=== PATIENT | female | born 2000 ===

== ENCOUNTER 2019-03-28 18:04 | Emergency (ER) | payer SELFPAY ==
[~2019-03-28] VITALS: Ht 162 cm; Wt 59.0 kg
--- NOTE | 2019-03-28 18:49 | NUR ---
LAB HERE TO DRAW BLOOD
[2019-03-28] MEDS ORDERED: ACHD5005 PO (18:52)
[2019-03-28] MEDS ORDERED: CEPH500T PO (18:52)
--- NOTE | 2019-03-28 18:53 | ED Integumentary General ---
General Chief Complaint: Skin/Wound Problems Stated Complaint: LEFT LEG BRUISING Nursing Triage Note: PT CO OF POSSIBLE BITE AREA ON INNER L THIGH WEDNESDAY HAS GOTTEN WORSE. PAIN RADIATING INTO LOWER ABD ON L SIDE 09/24 Source: patient Exam Limitations: no limitations History of Present Illness Date Seen by Provider: Mar 28, 2019 Time Seen by Provider: 18:49 Initial Comments To ER with an area of bruising to the medial proximal left thigh. This was first noticed 2 days ago, she felt a sharp pain upon sitting down. She went to the bathroom to check this out and noticed a small red bump. Since then the small red bump has turned into a flat area ecchymotic in appearance, nodular beneath it and with surrounding erythema. She had some body aches and chills yesterday. She did not see a spider bite her but suspects a spider bite. Timing/Duration: constant, getting worse Severity: moderate Location: none Associated Symptoms: denies symptoms Allergies and Home Medications Allergies Coded Allergies: No Known Drug Allergies (Unverified , 03/28/19) Home Medications Cephalexin 500 Mg Tablet, 500 MG PO TID Prescribed by: CATARINA ENGEL on 03/28/191851 Hydrocodone Bit/Acetaminophen 1 Tab Tab, 1-2 EACH PO Q6H PRN for PAIN-MODERATE Prescribed by: CATARINA ENGEL on 03/28/191851 Patient Home Medication List Home Medication List Reviewed: Yes Review of Systems Review of Systems Constitutional: see HPI, chills EENTM: see HPI Respiratory: no symptoms reported Cardiovascular: no symptoms reported Genitourinary: no symptoms reported LMP: Feb 26, 2019 Skin: see HPI Psychiatric/Neurological: No Symptoms Reported Past Jmqpdwt-Ygafpw-Nbyzdo Hx Patient Social History Alcohol Use: Denies Use Recreational Drug Use: No Smoking Status: Never a Smoker Recent Foreign Travel: No Contact w/Someone Who Travel: No Recent Infectious Disease Expo: No Recent Hopitalizations: No Ebola Symptoms: Weakness Physical Abuse: No Sexual Abuse: No Immunizations Up To Date Tetanus Booster (TDap): More than 5yrs Past Medical History Surgeries: No Respiratory: No Cardiac: No Neurological: No Genitourinary: No Gastrointestinal: No Musculoskeletal: No Endocrine: No HEENT: No Cancer: No Psychosocial: No Integumentary: No Physical Exam Vital Signs Vital Signs - First Documented 03/28/19 18:26 Temp 36.6 Pulse 92 Resp 18 Pulse Ox 100 Capillary Refill : General Appearance: WD/WN, no apparent distress HEENT: PERRL/EOMI, normal ENT inspection Respiratory: no respiratory distress, no accessory muscle use Neurologic/Psychiatric: alert, normal mood/affect, oriented x 3 Skin: normal color, warm/dry Skin Problem Location: other (proximal medial left thigh has a 2 x 1 cm area of ecchymosis with some areas of pale color, around this is a 3 cm area of erythema circular in shape and indurated. This is consistent with brown recluse bite.) Progress/Results/Core Measures Results/Orders Lab Results Laboratory Tests Test 03/28/19 18:52 Range/Units White Blood Count 7.2 4.3-11.0 10^3/uL Red Blood Count 4.54 4.35-5.85 10^6/uL Hemoglobin 13.5 11.5-16.0 G/DL Hematocrit 41 35-52 % Mean Corpuscular Volume 90 80-99 FL Mean Corpuscular Hemoglobin 30 25-34 PG Mean Corpuscular Hemoglobin Concent 33 32-36 G/DL Red Cell Distribution Width 13.0 10.0-14.5 % Platelet Count 169 130-400 10^3/uL Mean Platelet Volume 10.8 H 7.4-10.4 FL Neutrophils (%) (Auto) 69 42-75 % Lymphocytes (%) (Auto) 21 12-44 % Monocytes (%) (Auto) 8 0-12 % Eosinophils (%) (Auto) 2 0-10 % Basophils (%) (Auto) 0 0-10 % Neutrophils # (Auto) 5.0 1.8-7.8 X 10^3 Lymphocytes # (Auto) 1.5 1.0-4.0 X 10^3 Monocytes # (Auto) 0.6 0.0-1.0 X 10^3 Eosinophils # (Auto) 0.2 0.0-0.3 10^3/uL Basophils # (Auto) 0.0 0.0-0.1 10^3/uL Prothrombin Time 14.5 12.2-14.7 SEC INR Comment 1.1 0.8-1.4 Sodium Level 137 135-145 MMOL/L Potassium Level 3.6 3.6-5.0 MMOL/L Chloride Level 105 98-107 MMOL/L Carbon Dioxide Level 22 21-32 MMOL/L Anion Gap 10 5-14 MMOL/L Blood Urea Nitrogen 14 7-18 MG/DL Creatinine 0.70 0.60-1.30 MG/DL Estimat Glomerular Filtration Rate > 60 BUN/Creatinine Ratio 20 Glucose Level 94 70-105 MG/DL Calcium Level 9.2 8.5-10.1 MG/DL Corrected Calcium 8.9 8.5-10.1 MG/DL Total Bilirubin 0.3 0.1-1.0 MG/DL Aspartate Amino Transf (AST/SGOT) 41 H 5-34 U/L Alanine Aminotransferase (ALT/SGPT) 49 0-55 U/L Alkaline Phosphatase 84 40-136 U/L Total Protein 7.5 6.4-8.2 GM/DL Albumin 4.4 3.2-4.5 GM/DL My Orders Orders - CATARINA ENGEL APRN Cbc With Automated Diff (03/28/19 18:35) Comprehensive Metabolic Panel (03/28/19 18:35) Protime With Inr (03/28/19 18:35) Vital Signs/I&O 03/28/19 18:26 Temp 36.6 Pulse 92 Resp 18 B/P (MAP) Pulse Ox 100 Departure Impression Primary Impression: Brown recluse spider bite Qualified Codes: T63.334A - Toxic effect of venom of brown recluse spider, undetermined, initial encounter Disposition: 01 HOME, SELF-CARE Condition: Stable Departure-Patient Inst. Decision time for Depature: 18:51 Referrals: NO,LOCAL PHYSICIAN (PCP) Primary Care Physician Patient Instructions: Spider Bites Add. Discharge Instructions: 1. Cool compresses to the area. Pain medication as needed for severe pain only. Antibiotics as directed. Follow-up with your doctor this week for recheck. All discharge instructions reviewed with patient and/or family. Voiced understanding. Scripts Hydrocodone Bit/Acetaminophen (Hydrocodone/Acetaminophen 5/325mg Tablet) 1 Tab Tab 1-2 EACH PO Q6H PRN for PAIN-MODERATE MDD 10 for 3 Days, #5 TAB 0 Refills Prov: CATARINA ENGEL APRN 03/28/19 Cephalexin (Cephalexin) 500 Mg Tablet 500 MG PO TID, #15 TAB 0 Refills Prov: CATARINA ENGEL APRN 03/28/19 Work/School Note: Work Release Form Date Seen in the Emergency Department: Mar 28, 2019 Return to Work: Mar 30, 2019 CATARINA ENGEL APRN Mar 28, 2019 18:53
--- NOTE | 2019-03-28 18:54 | NUR ---
REPORT TO AMADEO COLÓN
[2019-03-28 18:59] LABS: BASOPHILS % (AUTO) 0 % (0-10); EOSINOPHILS # (AUTO) 0.2 10^3/uL (0.0-0.3); EOSINOPHILS % (AUTO) 2 % (0-10); HEMATOCRIT 41 % (35-52); HEMOGLOBIN 13.5 G/DL (11.5-16.0); LYMPHOCYTES # (AUTO) 1.5 X 10^3 (1.0-4.0); LYMPHOCYTES % (AUTO) 21 % (12-44); MEAN CORPUSCULAR HEMOGLOBIN 30 PG (25-34); MEAN CORPUSCULAR HGB CONC 33 G/DL (32-36); MEAN CORPUSCULAR VOLUME 90 FL (80-99); MEAN PLATELET VOLUME 10.8 FL (7.4-10.4); MONOCYTES # (AUTO) 0.6 X 10^3 (0.0-1.0); MONOCYTES % (AUTO) 8 % (0-12); NEUTROPHILS % (AUTO) 69 % (42-75); PLATELET COUNT 169 10^3/uL (130-400); WHITE BLOOD COUNT 7.2 10^3/uL (4.3-11.0)
[2019-03-28 19:09] LABS: INR 1.1 (0.8-1.4); PROTHROMBIN TIME PATIENT 14.5 SEC (12.2-14.7)
[2019-03-28 19:19] LABS: ALANINE AMINOTRANSFERASE 49 U/L (0-55); ALBUMIN 4.4 GM/DL (3.2-4.5); ALKALINE PHOSPHATASE 84 U/L (40-136); BILIRUBIN,TOTAL 0.3 MG/DL (0.1-1.0); BUN/CREATININE RATIO 20; CALCIUM 9.2 MG/DL (8.5-10.1); CARBON DIOXIDE 22 MMOL/L (21-32); CHLORIDE 105 MMOL/L (98-107); GFR ESTIMATED > 60; GLUCOSE 94 MG/DL (70-105); POTASSIUM 3.6 MMOL/L (3.6-5.0); SODIUM 137 MMOL/L (135-145); TOTAL PROTEIN 7.5 GM/DL (6.4-8.2)
[2019-03-28] MEDS ORDERED: HYDROcodone/APAP 5 MG/325 MG (LORTAB) TAB PO ONE (19:45)
[2019-03-28] MEDS ORDERED: CEPHALEXIN 250 MG (KEFLEX) CAP PO ONE (19:45)
--- OUTSIDE RECORDS SUMMARY | 2019-04-07 16:00 | XMS REPORT | Continuity of Care Document ---
Author Organization Unknown Address Unknown Phone Unavailable Allergies Active Description Code Type Severity Reaction Onset Reported/Identified Relationship to Patient Clinical Status Yes No Known Drug Allergies [id number] Drug Allergy Unknown N/A 03/28/2019 Medications There is no data. Problems Date Dx Coded Attending Type Code Diagnosis Diagnosed By 03/28/2019 CATARINA ENGEL APRN Ot T63.331A TOXIC EFFECT OF VENOM OF BROWN RECLUSE S Procedures There is no data. Results Test Result Range Complete blood count (CBC) with automate d white blood cell (WBC) differential - 03/28/19 18:52 Blood leukocytes automated count (number/volume) 7.2 10*3/uL 4.3-11.0 Blood erythrocytes automated count (number/volume) 4.54 10*6/uL 4.35-5.85 Venous blood hemoglobin measurement (mass/volume) 13.5 g/dL 11.5-16.0 Blood hematocrit (volume fraction) 41 % 35-52 Automated erythrocyte mean corpuscular volume 90 [ foz_us] 80-99 Automated erythrocyte mean corpuscular h emoglobin (mass per erythrocyte) 30 pg 25-34 Automated erythrocyte mean corpuscular h emoglobin concentration measurement (mass/volume) 33 g/dL 32-36 Automated erythrocyte distribution width ratio 13. 0 % 10.0- 14.5 Automated blood platelet count (count/volume) 169 10*3/uL 130-400 Automated blood platelet mean volume measurement 10.8 [foz_us] 7.4-10.4 Automated blood neutrophils/100 leukocytes 69 % 42-75 Automated blood lymphocytes/100 leukocytes 21 % 12-44 Blood monocytes/100 leukocytes 8 % 0-12 Automated blood eosinophils/100 leukocytes 2 % 0-10 Automated blood basophils/100 leukocytes 0 % 0-10 Blood neutrophils automated count (number/volume) 5.0 10*3 1.8-7.8 Blood lymphocytes automated count (number/volume) 1.5 10*3 1.0-4.0 Blood monocytes automated count (number/volume) 0. 6 10*3 0.0-1.0 Automated eosinophil count 0.2 10*3/uL 0 .0-0.3 Automated blood basophil count (count/volume) 0.0 10*3/uL 0.0-0.1 PT panel in platelet poor plasma by coag ulation assay - 03/28/19 18:52 Prothrombin time (PT) in platelet poor plasma by coagu lation assay 14.5 s 12.2-14.7 INR in platelet poor plasma or blood by coagulation as say 1.1 0.8-1.4 Comprehensive metabolic panel - 03/28/19 18:52 Serum or plasma sodium measurement (moles/volume) 137 mmol/L 135-145 Serum or plasma potassium measurement (moles/volume) 3.6 mmol/L 3.6-5.0 Serum or plasma chloride measurement (moles/volume) 105 mmol/L 98-107 Carbon dioxide 22 mmol/L 21-32 Serum or plasma anion gap determination (moles/volume) 10 mmol/L 5-14 Serum or plasma urea nitrogen measurement (mass/volume ) 14 mg/dL 7-18 Serum or plasma creatinine measurement (mass/volume) 0.70 mg/dL 0.60-1.30 Serum or plasma urea nitrogen/creatinine mass ratio 20 NRG Serum or plasma creatinine measurement w ith calculation of estimated glomerular filtration rate > NRG Serum or plasma glucose measurement (mass/volume) 94 mg/dL 70-105 Serum or plasma calcium measurement (mass/volume) 9.2 mg/dL 8.5-10.1 Serum or plasma total bilirubin measurement (mass/volu me) 0.3 mg/dL 0.1-1.0 Serum or plasma alkaline phosphatase liz surement (enzymatic activity/volume) 84 U/L 40-136 Serum or plasma aspartate aminotransfera se measurement (enzymatic activity/volume) 41 U/L 5-34 Serum or plasma alanine aminotransferase measurement (enzymatic activity/volume) 49 U/L 0-55 Serum or plasma protein measurement (mass/volume) 7.5 g/dL 6.4-8.2 Serum or plasma albumin measurement (mass/volume) 4.4 g/dL 3.2-4.5 CALCIUM CORRECTED 8.9 mg/dL 8.5-10.1 Complete blood count (CBC) with automate d white blood cell (WBC) differential - 04/06/19 15:18 Blood leukocytes automated count (number/volume) 8.6 10*3/uL 4.3-11.0 Blood erythrocytes automated count (number/volume) 4.32 10*6/uL 4.35-5.85 Venous blood hemoglobin measurement (mass/volume) 12.9 g/dL 11.5-16.0 Blood hematocrit (volume fraction) 39 % 35-52 Automated erythrocyte mean corpuscular volume 91 [ foz_us] 80-99 Automated erythrocyte mean corpuscular h emoglobin (mass per erythrocyte) 30 pg 25-34 Automated erythrocyte mean corpuscular h emoglobin concentration measurement (mass/volume) 33 g/dL 32-36 Automated erythrocyte distribution width ratio 12. 6 % 10.0- 14.5 Automated blood platelet count (count/volume) 248 10*3/uL 130-400 Automated blood platelet mean volume measurement 9.7 [foz_us] 7.4-10.4 Automated blood neutrophils/100 leukocytes 60 % 42-75 Automated blood lymphocytes/100 leukocytes 29 % 12-44 Blood monocytes/100 leukocytes 9 % 0-12 Automated blood eosinophils/100 leukocytes 1 % 0-10 Automated blood basophils/100 leukocytes 0 % 0-10 Blood neutrophils automated count (number/volume) 5.2 10*3 1.8-7.8 Blood lymphocytes automated count (number/volume) 2.5 10*3 1.0-4.0 Blood monocytes automated count (number/volume) 0. 8 10*3 0.0-1.0 Automated eosinophil count 0.1 10*3/uL 0 .0-0.3 Automated blood basophil count (count/volume) 0.0 10*3/uL 0.0-0.1 Whole blood basic metabolic panel - 03/19 15:18 Serum or plasma sodium measurement (moles/volume) 136 mmol/L 135-145 Serum or plasma potassium measurement (moles/volume) 3.9 mmol/L 3.6-5.0 Serum or plasma chloride measurement (moles/volume) 105 mmol/L 98-107 Carbon dioxide 23 mmol/L 21-32 Serum or plasma anion gap determination (moles/volume) 8 mmol/L 5-14 Serum or plasma urea nitrogen measurement (mass/volume ) 7 mg/dL 7-18 Serum or plasma creatinine measurement (mass/volume) 0.62 mg/dL 0.60-1.30 Serum or plasma urea nitrogen/creatinine mass ratio 11 NRG Serum or plasma creatinine measurement w ith calculation of estimated glomerular filtration rate > NRG Serum or plasma glucose measurement (mass/volume) 76 mg/dL 70-105 Serum or plasma calcium measurement (mass/volume) 9.0 mg/dL 8.5-10.1 Encounters ACCT No. Visit Date/Time Discharge Status Pt. Type Provider Facility Loc./Unit Complaint [id number] 04/06/2019 14:15:00 020 15:57:00 DIS Emergency CATARINA ENGEL APRN [facility] [address] ER SPIDER BITE;N/V [id number] 03/28/2019 18:08:00 020 19:39:00 DIS Emergency CATARINA ENGEL APRN [facility] [address] ER LEFT LEG BRUISING
== END 2019-03-28 19:39 | disposition home or self-care (01) ==
LOC: ER 18:08
DX: T63.331A Toxic effect of venom of brown recluse spider, accidental (unintentional), initial encounter (principal)
CPT/HCPCS: 36415; 80053; 85025; 85610; 99283

== ENCOUNTER 2019-04-06 14:14 | Emergency (ER) | payer SELFPAY ==
[~2019-04-06] VITALS: Ht 167 cm; Wt 60.4 kg
[~2019-04-06 14:14] MED LIST: ACHD5005 PO; CEPH500T PO
--- NOTE | 2019-04-06 14:31 | NUR ---
NO CHANGE FROM TRIAGE. AMB TO ROOM SMILING DID THROW UP AFTER EATING SPINACH TODAY ANTIBIOTIC WAS CHANGE FROM HER HER FIRST VISIT UNSURE NAME OF ANTIBIOTIC CHANGE IT TO.
--- NOTE | 2019-04-06 14:59 | ED General ---
General Chief Complaint: Abdominal/GI Problems Stated Complaint: SPIDER BITE;N/V Nursing Triage Note: ARRIVED VIA AMB TO TRIAGE WITH COMPLAINTS OF N/V AND NEAR SYNCOPE STARTING TODAY. STATES SHE WAS HERE FOR A SPIDER BITE LAST WEEK AND STILL ON ABX. Source of Information: Patient Exam Limitations: No Limitations History of Present Illness Date Seen by Provider: Apr 06, 2019 Time Seen by Provider: 14:54 Initial Comments To ER with nausea and vomiting. She was seen here recently for a spider bite proximal medial left thigh. She was given Keflex, hydrocodone. The appearance of the bite is improving but she developed some nausea. She developed a body wide rash after starting the antibiotic. She stopped it, went to [facility], was given Bactroban ointment, naproxen, more hydrocodone, and a different antibiotic. That was last , Timing/Duration: 1-2 Days Severity: Moderate Associated Systoms: Nausea/Vomiting Allergies and Home Medications Allergies Coded Allergies: No Known Drug Allergies (Unverified , 03/28/19) Home Medications Cephalexin 500 Mg Tablet, 500 MG PO TID Prescribed by: CATARINA ENGEL on 03/28/191851 Hydrocodone Bit/Acetaminophen 1 Tab Tab, 1-2 EACH PO Q6H PRN for PAIN-MODERATE Prescribed by: CATARINA ENGEL on 03/28/191851 Patient Home Medication List Home Medication List Reviewed: Yes Review of Systems Review of Systems Constitutional: see HPI EENTM: see HPI Respiratory: no symptoms reported Cardiovascular: no symptoms reported Genitourinary: no symptoms reported Musculoskeletal: no symptoms reported Skin: no symptoms reported Psychiatric/Neurological: No Symptoms Reported Past Dsjqrxt-Bcaigm-Cjnnua Hx Patient Social History Recent Foreign Travel: No Contact w/Someone Who Travel: No Recent Infectious Disease Expo: No Recent Hopitalizations: No Immunizations Up To Date Tetanus Booster (TDap): More than 5yrs Past Medical History Surgeries: No Respiratory: No Cardiac: No Neurological: No Genitourinary: No Gastrointestinal: No Musculoskeletal: No Endocrine: No HEENT: No Cancer: No Psychosocial: No Integumentary: No Physical Exam Vital Signs Vital Signs - First Documented 04/06/19 14:18 Temp 36.5 Pulse 65 Resp 16 B/P (MAP) 160/99 Pulse Ox 100 Capillary Refill : Height, Weight, BMI Height: '" Weight: lbs. oz. kg; 21.00 BMI Method: General Appearance: No Apparent Distress, WD/WN Eyes: Bilateral Eye Normal Inspection, Bilateral Eye PERRL HEENT: PERRL/EOMI, TMs Normal Neck: Full Range of Motion, Normal Inspection Respiratory: No Accessory Muscle Use, No Respiratory Distress Cardiovascular: Regular Rate, Rhythm, Normal Peripheral Pulses Gastrointestinal: Non Tender, Soft Extremity: Normal Capillary Refill, Normal Inspection Neurologic/Psychiatric: Alert, Oriented x3 Skin: Other (to the medial aspect of the left thigh is a 2 x 3 cm area well demarcated of erythema with a 0.5 x 1 cm area of central necrosis consistent with spider bite. Does not appear infected, the oral antibiotics can stop.) Progress/Results/Core Measures Suspected Sepsis SIRS Temperature: Pulse: Respiratory Rate: Laboratory Tests 04/06/19 15:18: White Blood Count 8.6 Blood Pressure / Mean: Laboratory Tests 04/06/19 15:18: Creatinine 0.62, Platelet Count 248 Results/Orders Lab Results Laboratory Tests Test 04/06/19 15:18 Range/Units White Blood Count 8.6 4.3-11.0 10^3/uL Red Blood Count 4.32 L 4.35-5.85 10^6/uL Hemoglobin 12.9 11.5-16.0 G/DL Hematocrit 39 35-52 % Mean Corpuscular Volume 91 80-99 FL Mean Corpuscular Hemoglobin 30 25-34 PG Mean Corpuscular Hemoglobin Concent 33 32-36 G/DL Red Cell Distribution Width 12.6 10.0-14.5 % Platelet Count 248 130-400 10^3/uL Mean Platelet Volume 9.7 7.4-10.4 FL Neutrophils (%) (Auto) 60 42-75 % Lymphocytes (%) (Auto) 29 12-44 % Monocytes (%) (Auto) 9 0-12 % Eosinophils (%) (Auto) 1 0-10 % Basophils (%) (Auto) 0 0-10 % Neutrophils # (Auto) 5.2 1.8-7.8 X 10^3 Lymphocytes # (Auto) 2.5 1.0-4.0 X 10^3 Monocytes # (Auto) 0.8 0.0-1.0 X 10^3 Eosinophils # (Auto) 0.1 0.0-0.3 10^3/uL Basophils # (Auto) 0.0 0.0-0.1 10^3/uL Sodium Level 136 135-145 MMOL/L Potassium Level 3.9 3.6-5.0 MMOL/L Chloride Level 105 98-107 MMOL/L Carbon Dioxide Level 23 21-32 MMOL/L Anion Gap 8 5-14 MMOL/L Blood Urea Nitrogen 7 7-18 MG/DL Creatinine 0.62 0.60-1.30 MG/DL Estimat Glomerular Filtration Rate > 60 BUN/Creatinine Ratio 11 Glucose Level 76 70-105 MG/DL Calcium Level 9.0 8.5-10.1 MG/DL My Orders Orders - CATARNIA ENGEL APRN Ondansetron Oral Dissolve Tab (Zofran (04/06/19 15:00) Cbc With Automated Diff (04/06/19 14:48) Basic Metabolic Panel (04/06/19 14:48) Medications Given in ED Current Medications Medications Dose Ordered Sig/John Route Start Time Stop Time Status Last Admin Dose Admin Ondansetron HCl 8 mg ONCE ONCE PO 04/06/19 15:00 04/06/19 15:01 DC 04/06/19 15:01 8 MG Vital Signs/I&O 04/06/19 14:18 Temp 36.5 Pulse 65 Resp 16 B/P (MAP) 160/99 Pulse Ox 100 Capillary Refill : Departure Impression Primary Impression: Spider bite Disposition: HOME, SELF-CARE Condition: Stable Departure-Patient Inst. Decision time for Depature: 15:10 Referrals: NO,LOCAL PHYSICIAN (PCP/Family) Primary Care Physician Patient Instructions: Spider Bites Add. Discharge Instructions: Stop the oral antibiotic All discharge instructions reviewed with patient and/or family. Voiced understanding. Scripts Ondansetron (Ondansetron Odt) 8 Mg Tab.rapdis 8 MG PO Q6H PRN for NAUSEA/VOMITING, #10 TAB Prov: CATARINA ENGEL APRN 04/06/19 CATARINA ENGEL APRN Apr 06, 2019 14:59
[2019-04-06] MEDS ORDERED: ONDANSETRON 4 MG (ZOFRAN) ORAL DISSOLVE TAB PO ONE (15:00)
[2019-04-06 15:26] LABS: BASOPHILS % (AUTO) 0 % (0-10); EOSINOPHILS # (AUTO) 0.1 10^3/uL (0.0-0.3); EOSINOPHILS % (AUTO) 1 % (0-10); HEMATOCRIT 39 % (35-52); HEMOGLOBIN 12.9 G/DL (11.5-16.0); LYMPHOCYTES # (AUTO) 2.5 X 10^3 (1.0-4.0); LYMPHOCYTES % (AUTO) 29 % (12-44); MEAN CORPUSCULAR HEMOGLOBIN 30 PG (25-34); MEAN CORPUSCULAR HGB CONC 33 G/DL (32-36); MEAN CORPUSCULAR VOLUME 91 FL (80-99); MEAN PLATELET VOLUME 9.7 FL (7.4-10.4); MONOCYTES # (AUTO) 0.8 X 10^3 (0.0-1.0); MONOCYTES % (AUTO) 9 % (0-12); NEUTROPHILS # (AUTO) 5.2 X 10^3 (1.8-7.8); NEUTROPHILS % (AUTO) 60 % (42-75); PLATELET COUNT 248 10^3/uL (130-400); RED CELL DISTRIBUTION WIDTH 12.6 % (10.0-14.5); WHITE BLOOD COUNT 8.6 10^3/uL (4.3-11.0)
[2019-04-06 15:42] LABS: BUN/CREATININE RATIO 11; CARBON DIOXIDE 23 MMOL/L (21-32); CHLORIDE 105 MMOL/L (98-107); CREATININE SERUM 0.62 MG/DL (0.60-1.30); GFR ESTIMATED > 60; GLUCOSE 76 MG/DL (70-105); POTASSIUM 3.9 MMOL/L (3.6-5.0); SODIUM 136 MMOL/L (135-145)
[2019-04-06] MEDS ORDERED: ONDA8TAB13 PO (15:48)
== END 2019-04-06 15:57 | disposition home or self-care (01) ==
LOC: EDUNIT# 14:14 → ER 14:15
DX: T63.301A Toxic effect of unspecified spider venom, accidental (unintentional), initial encounter (principal)
CPT/HCPCS: 36415; 80048; 85025; 99282

== ENCOUNTER 2019-12-02 20:54 | Inpatient (IN) | payer OTHER ==
[~2019-12-02] VITALS: Ht 162 cm; Wt 76.0 kg
[~2019-12-02 20:54] MED LIST changes: +ONDA8TAB13 PO
--- NOTE | 2019-12-02 21:02 | NUR ---
ACE LOPEZ presented to unit via from ED, accompanied by s/o, with c/o CONTRACTIONS. ACE LOPEZ weighed, gowned, voided, and to bed. EFHM and TOCO applied, VS taken. ACE LOPEZ oriented to bed controls, call light, TV, heat, and A/C controls.
[2019-12-02 21:10] VITALS: BP 119/68
--- NOTE | 2019-12-02 21:17 | NUR ---
notified of pt's arrival and complaint. Order to observe for 1 hour and call sve. States she will notify of pt's arrival.
[2019-12-02 21:54] VITALS: BP 119/68
--- NOTE | 2019-12-02 21:56 | NUR ---
called up to unit. Order to admit for labor received.
[2019-12-02] MEDS ORDERED: D5 LR IV SOLUTION 1,000 ML IV SCH (22:00)
[2019-12-02 22:05] VITALS: BP 119/83
[2019-12-02] MEDS ORDERED: D5 LR IV SOLUTION 1,000 ML IV ONE (22:13)
[2019-12-02 22:45] VITALS: BP 107/62
[2019-12-02 22:49] LABS: BASOPHILS % (AUTO) 0 % (0-10); EOSINOPHILS % (AUTO) 0 % (0-10); HEMATOCRIT 37 % (35-52); LYMPHOCYTES # (AUTO) 2.4 10^3/uL (1.0-4.0); LYMPHOCYTES % (AUTO) 16 % (12-44); MEAN CORPUSCULAR HEMOGLOBIN 28 pg (25-34); MEAN CORPUSCULAR HGB CONC 32 g/dL (32-36); MEAN CORPUSCULAR VOLUME 87 fL (80-99); MEAN PLATELET VOLUME 11.1 fL (9.0-12.2); MONOCYTES % (AUTO) 7 % (0-12); NEUTROPHILS % (AUTO) 77 % (42-75); PLATELET COUNT 217 10^3/uL (130-400); WHITE BLOOD COUNT 15.6 10^3/uL (4.3-11.0)
[2019-12-02 23:15] VITALS: BP 114/75
[2019-12-02 23:15] LABS: ANISOCYTOSIS SLIGHT; BAND NEUTROPHILS 1 %; LYMPHOCYTES % (MANUAL) 13 %; MICROCYTOSIS MODERATE; MONOCYTES % (MANUAL) 7 %; NEUTROPHILS % (MANUAL) 79 %
[2019-12-02 23:45] VITALS: BP 117/71
[2019-12-02] MEDS ORDERED: BUTORPHANOL INJ 2 MG/ML (STADOL) VIAL ONE (23:49)
[2019-12-03] VITALS (31 sets, daily range): BP systolic 88–125; BP diastolic 49–79
[2019-12-03] MEDS ORDERED: BUTORPHANOL INJ 2 MG/ML (STADOL) VIAL IV PRN
[2019-12-03] MEDS ORDERED: MEPIVACAINE (CARBOCAINE) 2% 50 ML VIAL ONE (01:37)
[2019-12-03] MEDS ORDERED: OXYTOCIN PRE-MIX DRIP 500 ML IV ONE ×2 (01:37→03:05)
[2019-12-03] MEDS ORDERED: MEPIVACAINE (CARBOCAINE) 2% 20 ML VIAL INJ ONE (02:20)
--- NOTE | 2019-12-03 02:22 | NUR ---
0222- of viable female infant. 0234- of intact placenta. At this time Dr. Le noted the uterus had become inverted. Orders received to consult OBGYN program professional. 0238-unable to reach Dr. Pettit after multiple attempts. 0241- Dr. Philippe unavailable for consult. 0243-Dr. Santana available for consult. En route to hospital. 0253-Dr. Santana at bedside to assess inverted uterus. Orders received to give fentanyl 50mcg for pain. Manual manipulation of uterus by Dr. Santana. 0306-Manipulation successful per Dr. Santana. Dr. Le at perineum to repair midline episiotomy.
[2019-12-03] MEDS ORDERED: OXYTOCIN PRE-MIX DRIP 500 ML IV SCH ×2 (02:34→03:29)
[2019-12-03] MEDS ORDERED: fentaNYL INJECTION 100 MCG/2 ML AMP IVP ONE (02:53)
[2019-12-03] MEDS ORDERED: fentaNYL INJECTION 100 MCG/2 ML AMP ONE (02:54)
[2019-12-03] MEDS ORDERED: ceFAZolin 2 GM IV Premixed 50 ML ONE (03:05)
[2019-12-03] MEDS ORDERED: ceFAZolin 2 GM IV Premixed 50 ML IV ONE (03:15)
--- NOTE | 2019-12-03 03:25 | History & Physical-OB ---
OB - Chief Complaint & HPI Date/Time Date of Admission: Date of Admission: Dec 02, 2019 at 22:45 Date seen by a Provider: Dec 03, 2019 Time Seen by a Provider: 02:10 Chief Complaint/History OB-Reason for Admission/Chief: Onset of Labor Hx : 1 Hx Para: 1 Expected Date of Delivery: Dec 01, 2019 Gestational Age in Weeks: 40 Gestational Age in Days: 1 Other reason for admission: L&D Admission Nurse Assessment Rev: Yes History of Labs GBS negative perineum at 36 weeks gestation Allergies and Home Medications Allergies Coded Allergies: No Known Drug Allergies (Unverified , 03/28/19) Patient Home Medication List Home Medication List Reviewed: Yes OB - History Hx of Present Care: Yes Ultrasounds: Normal mid trimester US Obstetrical Complications: None Medical Complications: None Delivery History Adverse Rxn to Tranfusion: No Patient Past Medical History no chronic medical problems Social History/Family History Recent Infectious Disease Expo: No Alcohol Use: Denies Use Recreational Drug Use: No Immunizations Tetanus Booster (TDap): More than 5yrs OB - Admission Exam Physical Exam Vitals: Vital Signs 12/02/19 12/02/19 21:54 23:45 Temp 36.2 Pulse 75 Resp 18 B/P (MAP) 117/71 (86) Pulse Ox 100 O2 Delivery Room Air HEENT: Moist Membranes Heart: Rhythm Normal Lungs: Clear Abdomen: Gravid Cervical Dilatation: 3cm (on admission) Effacement: 100% Station: -1 Membranes: Intact Heart Rate: 140's Accelerations: Accelerations Present Short Term Variability: Present Group Home Variability: Average (6-25) Contractions on Admission: < 5 Minutes Apart Intensity: Moderate Labs Laboratory Tests Test 12/02/19 22:35 Range/Units White Blood Count 15.6 H 4.3-11.0 10^3/uL Red Blood Count 4.26 3.80-5.11 10^6/uL Hemoglobin 12.0 11.5-16.0 g/dL Hematocrit 37 35-52 % Mean Corpuscular Volume 87 80-99 fL Mean Corpuscular Hemoglobin 28 25-34 pg Mean Corpuscular Hemoglobin Concent 32 32-36 g/dL Red Cell Distribution Width 13.5 10.0-14.5 % Platelet Count 217 130-400 10^3/uL Mean Platelet Volume 11.1 9.0-12.2 fL Immature Granulocyte % (Auto) 0 % Neutrophils (%) (Auto) 77 H 42-75 % Lymphocytes (%) (Auto) 16 12-44 % Monocytes (%) (Auto) 7 0-12 % Eosinophils (%) (Auto) 0 0-10 % Basophils (%) (Auto) 0 0-10 % Neutrophils # (Auto) 12.0 H 1.8-7.8 10^3/uL Lymphocytes # (Auto) 2.4 1.0-4.0 10^3/uL Monocytes # (Auto) 1.0 0.0-1.0 10^3/uL Eosinophils # (Auto) 0.0 0.0-0.3 10^3/uL Basophils # (Auto) 0.0 0.0-0.1 10^3/uL Immature Granulocyte # (Auto) 0.1 0.0-0.1 10^3/uL Neutrophils % (Manual) 79 % Lymphocytes % (Manual) 13 % Monocytes % (Manual) 7 % Band Neutrophils 1 % Anisocytosis SLIGHT Microcytosis MODERATE OB - Assessment/Plan/Diagnosis Assessment Assessment: active labor (at 40w 1 day) Admission Dx 1. IUP at term 40 weeks. Admission Status: Inpatient Order (span 2 midnights) Reason for Inpatient Admission: L&D Plan Plan: Expectant Management Other Plan -delivery soon -desires no epidural KEVIN SYED MD Dec 03, 2019 03:25
--- NOTE | 2019-12-03 03:29 | OB Labor & Delivery Record ---
L&D History Date of Service Date of Service: Dec 03, 2019 History Expected Date of Delivery: Dec 01, 2019 Gestational Age in Weeks: 40 Hx : 1 Hx Para: 1 Complications Events: Routine care Operative Indications (Cesarea: N/A-Vaginal Delivery Intrapartal Events: None Other Complications Uterine inversion L&D Stage1 Stage One Onset of Labor - Date: Dec 02, 2019 Onset of Labor - Time: 22:00 Monitors and Tracing Monitor Mode: External Heart Rate: 145 Monitor Accelerations: Uniform Station: 0 Halfway Variability: Average (6-10) Short Term Variability: Present Presentation: Vertex Vital Signs VS - Last 72 Hours, by Label 12/02/19 12/02/19 12/02/19 12/02/19 21:10 21:54 22:05 22:45 Temp 36.2 36.2 Pulse 69 72 68 65 Resp 18 18 18 18 B/P (MAP) 119/68 (85) 119/83 (95) 107/62 (77) Pulse Ox 100 100 O2 Delivery Room Air Room Air Room Air Room Air 12/02/19 12/02/19 23:15 23:45 Pulse 90 75 Resp 18 18 B/P (MAP) 114/75 (88) 117/71 (86) O2 Delivery Room Air Room Air Signs of Distress by FHT Signs of Distress no Rupture of Membranes Spontaneous Ruture of Membrane: No Amniotic Membrane Fluid Desc.: Meconium Stained Vaginal Bleeding Description: None Induction/Anesthesia Medications stadol 1mg x 1 L&D Stage2 Stage Two Stage II Date: Dec 03, 2019 Stage II Time: 02:22 Monitors and Tracing Monitor Mode: External Heart Rate: 145 Monitor Accelerations: Uniform Monitor Decelerations: Variable Bilingual Customer Service Variability: Average (6-10) Position: Left Occiput Anterior Presentation: Vertex Signs of Distress by FHT Signs of Distress no Cord Descript/Complications Cord Vessel Description: 3 Vessels Delivery Type Delivery Method: Spontaneous Vaginal Anterior Shoulder: Left Episiotomy/Perineal Laceration Laceraction(s)/Extensions: Yes Episiotomy Description: Midline Sutures Used: Vicryl Condition of Infant Delivery 1 minute Comment: 8 5 minute Comment: 9 Condition of Infant Condition of Infant: Living Exam: No Observed Abnormalities Resuscitation Resuscitation: N/A - Spontaneous Resp L&D Stage3 Stage Three Stage III Date: Dec 03, 2019 Stage III Time: 02:31 Pictocin Pitocin ml/hr: 125 Placenta Delivery Placenta Delivery: Spontaneous (but with uterine inversion. Dr Santana in consult with bedside treatment) Delivery Summary Summary Estimated blood loss (mL): 300 Condition of Delivery Examined: Cervix Examined Post Hemorrhage: No Intervention Required uterine inversion treated at bedside by Dr Santana. Patient received fentanyl 50 at bedside for pain relief. KEVIN SYED MD Dec 03, 2019 03:29
[2019-12-03] MEDS ORDERED: WITCH HAZEL(TUCKS) 40 EA JAR TOP PRN (03:30)
[2019-12-03] MEDS ORDERED: TETANUS,DIPTH,PERTUSS P/F (BOOSTRIX) 0.5 ML VIAL IM ONE (03:30)
[2019-12-03] MEDS ORDERED: BENZOCAINE/MENTHOL (DERMOPLAST) 60 ML CAN TP PRN (03:30)
[2019-12-03] MEDS ORDERED: MEASLES,MUMPS,RUBELLA 1 EA INJ SQ ONE (03:30)
[2019-12-03] MEDS: IBUPROFEN 600 MG (MOTRIN) TAB PO SCH ×3 (04:58→18:17)
[2019-12-03] MEDS ORDERED: CATHETER FLUSH 10 ML SYR IV SCH (06:00)
--- NOTE | 2019-12-03 06:47 | NUR ---
Dr. Le called and updated on patient status. Orders received.
[2019-12-03] MEDS ORDERED: D5 LR IV SOLUTION 1,000 ML IV SCH (07:00)
--- NOTE | 2019-12-03 07:00 | NUR ---
Dr. Le called unit. Orders received to give IM methergine now and repeat in 2 hours if needed.
[2019-12-03] MEDS ORDERED: METHYLERGONOVINE 0.2 MG/ML (METHERGINE) AMP ONE (07:04)
[2019-12-03] MEDS: METHYLERGONOVINE 0.2 MG/ML (METHERGINE) AMP IM PRN ×2 (07:05→08:49)
[2019-12-03 07:15] LABS: BASOPHILS % (AUTO) 0 % (0-10); EOSINOPHILS # (AUTO) 0.1 10^3/uL (0.0-0.3); EOSINOPHILS % (AUTO) 0 % (0-10); HEMATOCRIT 26 % (35-52); HEMOGLOBIN 8.4 g/dL (11.5-16.0); LYMPHOCYTES # (AUTO) 1.5 10^3/uL (1.0-4.0); LYMPHOCYTES % (AUTO) 6 % (12-44); MEAN CORPUSCULAR HEMOGLOBIN 29 pg (25-34); MEAN CORPUSCULAR HGB CONC 33 g/dL (32-36); MEAN CORPUSCULAR VOLUME 87 fL (80-99); MEAN PLATELET VOLUME 10.5 fL (9.0-12.2); MONOCYTES # (AUTO) 1.5 10^3/uL (0.0-1.0); MONOCYTES % (AUTO) 6 % (0-12); NEUTROPHILS # (AUTO) 23.1 10^3/uL (1.8-7.8); NEUTROPHILS % (AUTO) 88 % (42-75); PLATELET COUNT 199 10^3/uL (130-400); WHITE BLOOD COUNT 26.4 10^3/uL (4.3-11.0)
--- NOTE | 2019-12-03 07:25 | NUR ---
INITIAL ASSESSMENT COMPLETED, VSS, PERICARE COMPLETED, CONSTANT TRICKLE OF BLOOD NOTED FROM VAGINA, FUNDUS FIRM WITH MASSAGE, FFU/1, PT MOANING DURING FUNDAL CHECK AND VAG EXAM.
[2019-12-03] MEDS: ACETAMINOPHEN 500 MG TAB (TYLENOL) PO SCH ×3 (07:28→23:45)
--- NOTE | 2019-12-03 07:50 | NUR ---
DR SYED CALLED UPDATED ABOUT VAGINAL BLEEDING, DR KAUR CONSULTED PER DR SYED ORDER. DR KAUR NOTIFIED.
[2019-12-03 07:53] LABS: BAND NEUTROPHILS 10 %; LYMPHOCYTES % (MANUAL) 5 %; MONOCYTES % (MANUAL) 6 %; NEUTROPHILS % (MANUAL) 79 %; RBC MORPH NORMAL
--- NOTE | 2019-12-03 08:00 | NUR ---
DR KAUR AT BEDSIDE, TRINIDADE COMPLETED, PT MOANING WITH PAIN. NEW ORDERS RECEIVED FOR PAIN MEDS.
[2019-12-03] MEDS: PRENATAL VITAMIN 1 EA TAB PO SCH (08:08)
[2019-12-03] MEDS ORDERED: BUTORPHANOL INJ 2 MG/ML (STADOL) VIAL IV ONE (08:15)
--- NOTE | 2019-12-03 08:17 | NUR ---
STADOL 2 MG GIVEN SIVP.
--- NOTE | 2019-12-03 08:25 | NUR ---
DR KAUR AT BEDSIDE, 0830- STRAIGHT CATH PER DR KAUR, 200ML URINE. 0840- MANUAL REMOVAL OF PLACENTAL TISSUE, FUNDUS FIRM 0849- METHERGINE GIVEN IM IN LT THIGH. 0850- FFU/2, PERICARE COMPLETED, PT REPOSITIONED IN BED, PAD AND PANTIES APPLIED.
--- NOTE | 2019-12-03 08:52 | Postpartum Progress Note ---
Note Note Day # pp day 0 from and uterine inversion Delivered by Dr. Le and inversion reduced with assistance of Max COLÓN reports boddy uterus and continued slow, steady bleeding. Hgb dec 12 to 8 with 300 ml EBL recorded MLE without extension reported to me by RN. Repaired. Subjective: Patient is with complaint of pain in the perineum. not yet Ambulating has not voided since prior to delivery. Attempting to breast feed. Objective: 12/02/19 12/02/19 12/02/19 12/02/19 21:10 21:54 22:05 22:45 Temp 36.2 36.2 Pulse 69 72 68 65 Resp 18 18 18 18 B/P (MAP) 119/68 (85) 119/83 (95) 107/62 (77) Pulse Ox 100 100 O2 Delivery Room Air Room Air Room Air Room Air 12/02/19 12/02/19 12/03/19 12/03/19 23:15 23:45 00:15 00:45 Pulse 90 75 71 60 Resp 18 18 18 18 B/P (MAP) 114/75 (88) 117/71 (86) 100/58 (72) 124/79 (94) O2 Delivery Room Air Room Air Room Air Room Air 12/03/19 12/03/19 12/03/19 12/03/19 01:15 01:45 02:40 02:46 Temp 36.1 36.5 Pulse 60 69 88 103 Resp 18 18 18 18 B/P (MAP) 114/70 (85) 125/76 (92) 104/56 (72) 106/59 (75) O2 Delivery Room Air Room Air Room Air Room Air 12/03/19 12/03/19 12/03/19 12/03/19 02:51 03:03 03:06 03:11 Pulse 105 123 130 134 Resp 18 18 18 18 B/P (MAP) 94/51 (65) 101/53 (69) 100/58 (72) 105/58 (74) O2 Delivery Room Air Room Air Room Air Room Air 12/03/19 12/03/19 12/03/19 12/03/19 03:29 03:44 03:59 04:14 Pulse 134 142 136 123 Resp 18 18 18 18 B/P (MAP) 91/59 (70) 101/65 (77) 98/60 (73) 95/58 (70) O2 Delivery Room Air Room Air Room Air Room Air 12/03/19 12/03/19 12/03/19 12/03/19 04:37 04:44 05:00 05:14 Pulse 110 105 114 110 Resp 18 18 18 18 B/P (MAP) 94/55 (68) 92/53 (66) 101/54 (70) 95/55 (68) O2 Delivery Room Air Room Air Room Air Room Air 12/03/19 12/03/19 05:48 06:43 Temp 36.4 Pulse 116 100 Resp 18 18 B/P (MAP) 95/52 (66) 89/55 (66) O2 Delivery Room Air Room Air Laboratory Tests Test 12/02/19 22:35 12/03/19 07:09 Range/Units White Blood Count 15.6 H 26.4 H 4.3-11.0 10^3/uL Red Blood Count 4.26 2.94 L 3.80-5.11 10^6/uL Hemoglobin 12.0 8.4 #L 11.5-16.0 g/dL Hematocrit 37 26 L 35-52 % Mean Corpuscular Volume 87 87 80-99 fL Mean Corpuscular Hemoglobin 28 29 25-34 pg Mean Corpuscular Hemoglobin Concent 32 33 32-36 g/dL Red Cell Distribution Width 13.5 13.4 10.0-14.5 % Platelet Count 217 199 130-400 10^3/uL Mean Platelet Volume 11.1 10.5 9.0-12.2 fL Immature Granulocyte % (Auto) 0 1 % Neutrophils (%) (Auto) 77 H 88 H 42-75 % Lymphocytes (%) (Auto) 16 6 L 12-44 % Monocytes (%) (Auto) 7 6 0-12 % Eosinophils (%) (Auto) 0 0 0-10 % Basophils (%) (Auto) 0 0 0-10 % Neutrophils # (Auto) 12.0 H 23.1 H 1.8-7.8 10^3/uL Lymphocytes # (Auto) 2.4 1.5 1.0-4.0 10^3/uL Monocytes # (Auto) 1.0 1.5 H 0.0-1.0 10^3/uL Eosinophils # (Auto) 0.0 0.1 0.0-0.3 10^3/uL Basophils # (Auto) 0.0 0.0 0.0-0.1 10^3/uL Immature Granulocyte # (Auto) 0.1 0.2 H 0.0-0.1 10^3/uL Neutrophils % (Manual) 79 79 % Lymphocytes % (Manual) 13 5 % Monocytes % (Manual) 7 6 % Band Neutrophils 1 10 % Anisocytosis SLIGHT Microcytosis MODERATE Blood Morphology Comment NORMAL Physical Exam: General - Alert and oriented, no apparent distress Abdomen - Soft, appropriately tender to palpation, non-distended, fundus boggy Extremities - no edema, negative Christina's bilaterally \ Assessment: [1. post- day # 0, status post spont vaginal delivery with uterine inversion 2. continued bleeding 3. Acute blood loss anemia [] Plan: Routine care. Encourage breast feeding. Encourage ambulation. Ferrous sulfate supplementation. Plan for bedside uterine and vaginal exam Uterus was boggy and slow bleeding with massage, but no gushing. The perineum was examined and episiotomy site is intact. She may have a paravaginal hematoma on the left but this was small, just more tender and prominent. Will watch this. Gave 2 mg IV stadol and then did straight cath under sterile conditions. about 200 m l urine returned. Uterus more firm but still with bleeding upon massage. I then did a vaginal and uterine exam manually. There was about 150 ml of clot in the lower uterine segment and filmy/slick membranes were palpable. I was able to remove these with manual evacuation and a ring forceps. If she continues to have bleeding, would consider EUA in the OR due to difficulty with exam and bedside and discomfort. expressed understanding. Patient asleep with Stadol at this time. Vitals - Labs Vital Signs - I&O Vital Signs Date Time Temp Pulse Resp B/P (MAP) Pulse Ox O2 Delivery O2 Flow Rate FiO2 12/03/19 06:43 100 18 89/55 (66) Room Air 12/03/19 05:48 36.4 116 18 95/52 (66) Room Air 12/03/19 05:14 110 18 95/55 (68) Room Air 12/03/19 05:00 114 18 101/54 (70) Room Air 12/03/19 04:44 105 18 92/53 (66) Room Air 12/03/19 04:37 110 18 94/55 (68) Room Air 12/03/19 04:14 123 18 95/58 (70) Room Air 12/03/19 03:59 136 18 98/60 (73) Room Air 12/03/19 03:44 142 18 101/65 (77) Room Air 12/03/19 03:29 134 18 91/59 (70) Room Air 12/03/19 03:11 134 18 105/58 (74) Room Air 12/03/19 03:06 130 18 100/58 (72) Room Air 12/03/19 03:03 123 18 101/53 (69) Room Air 12/03/19 02:51 105 18 94/51 (65) Room Air 12/03/19 02:46 103 18 106/59 (75) Room Air 12/03/19 02:40 36.5 88 18 104/56 (72) Room Air 12/03/19 01:45 36.1 69 18 125/76 (92) Room Air 12/03/19 01:15 60 18 114/70 (85) Room Air 12/03/19 00:45 60 18 124/79 (94) Room Air 12/03/19 00:15 71 18 100/58 (72) Room Air 12/02/19 23:45 75 18 117/71 (86) Room Air 12/02/19 23:15 90 18 114/75 (88) Room Air 12/02/19 22:45 65 18 107/62 (77) Room Air 12/02/19 22:05 68 18 119/83 (95) Room Air 12/02/19 21:54 36.2 72 18 100 Room Air 12/02/19 21:10 36.2 69 18 119/68 (85) 100 Room Air I & O 12/03/19 07:00 Intake Total 1550 ml Balance 1550 ml Labs Laboratory Tests 12/02/19 22:35: White Blood Count 15.6H, Red Blood Count 4.26, Hemoglobin 12.0, Hematocrit 37, Mean Corpuscular Volume 87, Mean Corpuscular Hemoglobin 28, Mean Corpuscular Hemoglobin Concent 32, Red Cell Distribution Width 13.5, Platelet Count 217, Mean Platelet Volume 11.1, Immature Granulocyte % (Auto) 0, Neutrophils (%) (Auto) 77H, Lymphocytes (%) (Auto) 16, Monocytes (%) (Auto) 7, Eosinophils (%) (Auto) 0, Basophils (%) (Auto) 0, Neutrophils # (Auto) 12.0H, Lymphocytes # (Auto) 2.4, Monocytes # (Auto) 1.0, Eosinophils # (Auto) 0.0, Basophils # (Auto) 0.0, Immature Granulocyte # (Auto) 0.1, Neutrophils % (Manual) 79, Lymphocytes % (Manual) 13, Monocytes % (Manual) 7, Band Neutrophils 1, Anisocytosis SLIGHT, Microcytosis MODERATE 12/03/19 07:09: White Blood Count 26.4H, Red Blood Count 2.94L, Hemoglobin 8.4#L, Hematocrit 26L , Mean Corpuscular Volume 87, Mean Corpuscular Hemoglobin 29, Mean Corpuscular Hemoglobin Concent 33, Red Cell Distribution Width 13.4, Platelet Count 199, Mean Platelet Volume 10.5, Immature Granulocyte % (Auto) 1, Neutrophils (%) (Auto) 88H, Lymphocytes (%) (Auto) 6L, Monocytes (%) (Auto) 6, Eosinophils (%) (Auto) 0, Basophils (%) (Auto) 0, Neutrophils # (Auto) 23.1H, Lymphocytes # (Auto) 1.5, Monocytes # (Auto) 1.5H, Eosinophils # (Auto) 0.1, Basophils # (Auto) 0.0, Immature Granulocyte # (Auto) 0.2H, Neutrophils % (Manual) 79, Lymphocytes % (Manual) 5, Monocytes % (Manual) 6, Band Neutrophils 10, Blood Morphology Comment NORMAL JACK KAUR Dec 03, 2019 08:52
[2019-12-03] MEDS: DOCUSATE SODIUM 100 MG (COLACE) CAP PO SCH ×2 (08:55→20:26)
[2019-12-03] MEDS ORDERED: DOCUSATE SODIUM 100 MG (COLACE) CAP PO SCH (09:00)
--- NOTE | 2019-12-03 09:00 | NUR ---
FFU/2, LIGHT BLEEDING NOTED, PT RESTING WITH EYES CLOSED.
--- NOTE | 2019-12-03 09:30 | NUR ---
LIGHT LOCHIA NOTED, FFU/1, NO DISTRESS NOTED.
--- NOTE | 2019-12-03 10:25 | NUR ---
PERICARE COMPLETED, LIGHT LOCHIA NOTED, VSS. S/O AT SIDE.
[2019-12-03] MEDS ORDERED: ceFAZolin INJECTION 1,000 MG in WATER (STERILE) FOR INJECTION 10 ML IV ONE (11:00)
--- NOTE | 2019-12-03 11:20 | NUR ---
ANCEF STARTED PER ORDER SCHEDULED MOTRIN GIVEN.
--- NOTE | 2019-12-03 11:25 | NUR ---
ATTEMPTED TO ASSIST WITH , NO LATCH NOTED, SKIN TO SKIN WITH INFANT.
--- NOTE | 2019-12-03 12:45 | NUR ---
PT AMBULATED TO BR WITH RN ASSISTANCE, VOIDED, PERICARE COMPLETED, LIGHT LOCHIA NOTED, PAD AND PANTIES ON, TRANSFER BY WC TO PP ROOM 3309 WITH INFANT AND S/O. PT VERBALIZES UNDERSTANDING OF PP CARE AND PROCEDURES, NO QUESTIONS NOTED, ASSISTED MOTHER WITH . NO DISTRESS NOTED.
--- NOTE | 2019-12-03 15:05 | OPERATIVE REPORT ---
DATE OF SERVICE: 12/03/2019 PREOPERATIVE DIAGNOSIS: Uterine inversion. POSTOPERATIVE DIAGNOSIS: Uterine inversion. OPERATIVE PROCEDURE: Reversion of the uterine inversion. INDICATION: This patient is a 19-year-old 1, now para 1, patient of Dr. Le, who had just experienced a vaginal delivery. After delivery of the baby, Dr. Le had fairly prompt delivery of the placenta. On examination, he found the uterus completely everted inside the vagina. There did not appear to be a significant blood loss at this point and bleeding was fairly minimal by the time I arrived. The call physician was unavailable. A backup physician was unavailable. I was the third physician called and being available, arrived fairly promptly after the call. On arrival, I found the patient in room [address] Le on hand and nursing staff in the room with the patient writhing somewhat in the bed with blood on the vulva and in the vaginal vault. Dr. Le related the chain of events at this point including that there was a uterine inversion that resisted reduction. I donned gown and gloves, had the teacher specialist explain that we needed pressure in the vagina in order to restore the uterus to a normal position. The patient was obviously uncomfortable with bimanual exam with one hand completely inside the vagina with reducing pressure on the inverted fundus. The patient was given 50 mcg of fentanyl IV and had fairly promptly a somewhat relaxing effect with that. The uterus was noted to relax a small amount, which allowed the fundus to begin to revert. Continued pressure and manual manipulation to restore the uterus to a normal state was eventually effective. The patient again was obviously uncomfortable but tolerated the reduction of the uterus reasonably well. Uterus after several minutes was completely restored to a normal position. I removed the examining hand and then did a vaginal exam and was able to grasp the cervix with ring forceps and see that the cervix was completely visible and intact. The uterus was completely reduced. Repeat bimanual exam confirmed the integrity and normal anatomic oposition of the uterus at this point. The fundus of the uterus was palpable transabdominally and again was in a normal state. Blood loss, I would guess during my time with the patient would be in the range of [address] Le will give an estimate for the total blood loss for the delivery and the reduction. With the uterus completely reduced and the patient now comfortable and a normal amount of immediate bleeding, repeat exam showed a midline episiotomy with no significant bleeding and the uterus now in the normal anatomic state. I excused myself for Dr. Le to complete the repair of his episiotomy. I did recommend a course of antibiotics due to the manual manipulation of the uterus. Blood loss for the delivery as per Dr. Le's estimate. Blood loss for my portion of the replacing the uterus was around 200 mL. Sponge and needle counts were left to Dr. Le as I used none of either. The patient was left under the care of Dr. Le. Job ID: [id number] DocumentID: [id number] Dictated Date: 12/03/2019 03:15:53 Neonatal Intensive Care Nurse Date: 12/03/2019 10:54:49 Dictated By: JULISSA CARR MD MTDD
[2019-12-03] MEDS: FERROUS SULF 325 MG (IRON) TAB PO SCH (17:00)
--- NOTE | 2019-12-03 20:00 | NUR ---
pt resting in bed holding nb. Assessment completed. pt requesting juice. Juice provided. S/o at bedside. Pt denies any other needs.
--- NOTE | 2019-12-03 22:15 | NUR ---
Rn walked into room to check on pt. in bathroom standing behind pt. Pt leaning against the bathroom wall. States she is feeling dizzy, hot and is experiencing ringing in her ears. Emergency call light put on, pt carefully assisted back to toilet. Positive void. pericare completed. bleeding light. Pt states she is feeling much better. ambulated back to bed. call light within reach. told pt to push call light on her next bathroom trip. Pt verbalized understanding.
[2019-12-04] VITALS (8 sets, daily range): BP systolic 83–101; BP diastolic 49–58
[2019-12-04] MEDS: IBUPROFEN 600 MG (MOTRIN) TAB PO SCH ×4 (01:38→21:01)
[2019-12-04 06:23] LABS: BASOPHILS % (AUTO) 0 % (0-10); EOSINOPHILS # (AUTO) 0.1 10^3/uL (0.0-0.3); EOSINOPHILS % (AUTO) 0 % (0-10); HEMATOCRIT 21 % (35-52); LYMPHOCYTES % (AUTO) 19 % (12-44); MEAN CORPUSCULAR HGB CONC 32 g/dL (32-36); MEAN CORPUSCULAR VOLUME 89 fL (80-99); MEAN PLATELET VOLUME 11.1 fL (9.0-12.2); MONOCYTES # (AUTO) 1.1 10^3/uL (0.0-1.0); MONOCYTES % (AUTO) 7 % (0-12); NEUTROPHILS # (AUTO) 11.3 10^3/uL (1.8-7.8); NEUTROPHILS % (AUTO) 72 % (42-75); PLATELET COUNT 188 10^3/uL (130-400); WHITE BLOOD COUNT 15.6 10^3/uL (4.3-11.0)
[2019-12-04 06:26] LABS: MEAN CORPUSCULAR HEMOGLOBIN 30 pg (25-34)
--- NOTE | 2019-12-04 08:45 | NUR ---
A.M. ASSESSMENT COMPLETED. VSS. INFORMED PT TO REPORT ANY DIZZINESS WHEN UP. STATES UNDERSTANDING. SPOUSE AT BEDSIDE.
[2019-12-04] MEDS: DOCUSATE SODIUM 100 MG (COLACE) CAP PO SCH ×2 (08:57→21:01)
[2019-12-04] MEDS: PRENATAL VITAMIN 1 EA TAB PO SCH (08:57)
[2019-12-04] MEDS: FERROUS SULF 325 MG (IRON) TAB PO SCH ×2 (08:57→17:51)
[2019-12-04] MEDS: ACETAMINOPHEN 500 MG TAB (TYLENOL) PO SCH ×2 (08:58→15:21)
--- NOTE | 2019-12-04 09:21 | Postpartum Progress Note ---
Note Note Day # 2 s/p manual evacuation of uterus. receiving transfusion per Dr. Le. Dizzy/lightheaded Subjective: Patient is without complaints. Ambulating with dizziness, voiding. Tolerating a regular diet without nausea or vomiting. Normal lochia. Pain is well controlled with oral pain medications. breast feeding. Objective: 12/03/19 12/03/19 12/04/19 12/04/19 21:30 23:30 02:12 06:19 Temp 36.6 36.2 36.5 36.5 Pulse 83 89 73 76 Resp B/P (MAP) 88/49 (62) 100/50 (67) 92/53 (66) 83/49 (60) Pulse Ox 100 100 100 100 O2 Delivery Room Air Room Air Room Air Room Air Laboratory Tests Test 12/04/19 05:45 Range/Units White Blood Count 15.6 H 4.3-11.0 10^3/uL Red Blood Count 2.34 L 3.80-5.11 10^6/uL Hemoglobin 7.0 L 11.5-16.0 g/dL Hematocrit 21 L 35-52 % Mean Corpuscular Volume 89 80-99 fL Mean Corpuscular Hemoglobin 30 25-34 pg Mean Corpuscular Hemoglobin Concent 32 32-36 g/dL Red Cell Distribution Width 13.8 10.0-14.5 % Platelet Count 188 130-400 10^3/uL Mean Platelet Volume 11.1 9.0-12.2 fL Immature Granulocyte % (Auto) 1 % Neutrophils (%) (Auto) 72 42-75 % Lymphocytes (%) (Auto) 19 12-44 % Monocytes (%) (Auto) 7 0-12 % Eosinophils (%) (Auto) 0 0-10 % Basophils (%) (Auto) 0 0-10 % Neutrophils # (Auto) 11.3 H 1.8-7.8 10^3/uL Lymphocytes # (Auto) 3.0 1.0-4.0 10^3/uL Monocytes # (Auto) 1.1 H 0.0-1.0 10^3/uL Eosinophils # (Auto) 0.1 0.0-0.3 10^3/uL Basophils # (Auto) 0.0 0.0-0.1 10^3/uL Immature Granulocyte # (Auto) 0.1 0.0-0.1 10^3/uL Physical Exam: General - Alert and oriented, no apparent distress Abdomen - Soft, appropriately tender to palpation, non-distended, fundus firm at umbilicus Extremities - no edema, negative Christina's bilaterally Assessment: 1. post- day # 2, status post spontaneous vaginal delivery. 2. acute blood loss anemia 3. uterine inversion with retained membranes Plan: Routine care. Encourage breast feeding. Encourage ambulation. Ferrous sulfate supplementation/ receiving transfusion Plan for discharge per Dr. eL Vitals - Labs Vital Signs - I&O Vital Signs Date Time Temp Pulse Resp B/P (MAP) Pulse Ox O2 Delivery O2 Flow Rate FiO2 12/04/19 06:19 36.5 76 20 83/49 (60) 100 Room Air 12/04/19 02:12 36.5 73 20 92/53 (66) 100 Room Air 12/03/19 23:30 36.2 89 20 100/50 (67) 100 Room Air 12/03/19 21:30 36.6 83 20 88/49 (62) 100 Room Air 12/03/19 17:41 36.8 93 20 97/61 (73) 100 Room Air 12/03/19 11:13 36.2 84 18 102/69 (80) 98 Room Air 12/03/19 10:13 36.3 77 18 102/57 (72) 99 Room Air 12/03/19 09:43 89 18 102/67 (79) 99 Room Air I & O 12/04/19 07:00 Intake Total 1510 ml Balance 1510 ml Labs Laboratory Tests 12/04/19 05:45: White Blood Count 15.6H, Red Blood Count 2.34L, Hemoglobin 7.0L, Hematocrit 21L, Mean Corpuscular Volume 89, Mean Corpuscular Hemoglobin 30, Mean Corpuscular Hemoglobin Concent 32, Red Cell Distribution Width 13.8, Platelet Count 188, Mean Platelet Volume 11.1, Immature Granulocyte % (Auto) 1, Neutrophils (%) (Auto) 72, Lymphocytes (%) (Auto) 19, Monocytes (%) (Auto) 7, Eosinophils (%) (Auto) 0, Basophils (%) (Auto) 0, Neutrophils # (Auto) 11.3H, Lymphocytes # (Auto) 3.0, Monocytes # (Auto) 1.1H, Eosinophils # (Auto) 0.1, Basophils # (Auto) 0.0, Immature Granulocyte # (Auto) 0.1 JACK KAUR DO Dec 04, 2019 09:21
[2019-12-04] MEDS ORDERED: NS IV 500 ML 500 ML IV SCH (10:00)
[2019-12-04] MEDS ORDERED: FLU QUADRIvalent (3YOA+) 60 mcg/0.5 ml 2020-21 (AFLURIA) IM ONE (10:00)
--- NOTE | 2019-12-04 10:00 | NUR ---
ORDER FOR BLOOD RECEIVED BY DR. KAUR PER DR. SYED.
[2019-12-04] MEDS ORDERED: NS IV 500 ML 500 ML ONE (11:58)
--- NOTE | 2019-12-04 12:41 | NUR ---
1 UNIT PRC'S STARTED. SEE TRANSFUSION INTERVENTION.
--- NOTE | 2019-12-04 13:15 | NUR ---
IV LEAKING AT SITE. D/C'ED. RESTARTED IN LEFT HAND PER SONU FISHMAN RN. LINENS CHANGED.
--- NOTE | 2019-12-04 14:48 | NUR ---
TRANSFUSION COMPLETE. VSS. SEE INTERVENTION.
--- NOTE | 2019-12-04 16:25 | NUR ---
UP TO THE SHOWER. DOING WELL. VSS.
--- NOTE | 2019-12-04 17:45 | NUR ---
VSS. SSTATES FEELING BETTER SINCE BLOOD TRANSFUSION. PLAN FOR DISCHARGE TOMORROW.
--- NOTE | 2019-12-04 20:00 | NUR ---
PT SITTING UP IN BED. DENIES ANY NEEDS.
--- NOTE | 2019-12-04 21:00 | NUR ---
INITIAL SHIFT ASSESSMENT DONE. PT AT THIS TIME. DENIES ANY PAIN OR C/O'S. S/O AT SIDE.
--- NOTE | 2019-12-05 | NUR ---
PT RESTING. NO S/S OF DISTRESS OR DISCOMFORT NOTED.
[2019-12-05 01:45] VITALS: BP 95/59
--- NOTE | 2019-12-05 01:45 | NUR ---
REASSESSMENT AND VS COMPLETED. PT DENIES ANY PAIN OR NEEDS AT THIS TIME.
--- NOTE | 2019-12-05 05:15 | NUR ---
LAB HERE FOR AM LABS.
[2019-12-05 05:28] LABS: BASOPHILS # (AUTO) 0.1 10^3/uL (0.0-0.1); BASOPHILS % (AUTO) 0 % (0-10); EOSINOPHILS # (AUTO) 0.3 10^3/uL (0.0-0.3); EOSINOPHILS % (AUTO) 2 % (0-10); HEMATOCRIT 24 % (35-52); HEMOGLOBIN 7.8 g/dL (11.5-16.0); LYMPHOCYTES # (AUTO) 3.4 10^3/uL (1.0-4.0); LYMPHOCYTES % (AUTO) 25 % (12-44); MEAN CORPUSCULAR HEMOGLOBIN 29 pg (25-34); MEAN CORPUSCULAR HGB CONC 32 g/dL (32-36); MEAN CORPUSCULAR VOLUME 91 fL (80-99); MEAN PLATELET VOLUME 10.3 fL (9.0-12.2); MONOCYTES % (AUTO) 8 % (0-12); NEUTROPHILS # (AUTO) 8.7 10^3/uL (1.8-7.8); NEUTROPHILS % (AUTO) 64 % (42-75); PLATELET COUNT 205 10^3/uL (130-400); WHITE BLOOD COUNT 13.5 10^3/uL (4.3-11.0)
[2019-12-05] MEDS: IBUPROFEN 600 MG (MOTRIN) TAB PO SCH ×2 (06:08→11:52)
[2019-12-05] MEDS: ACETAMINOPHEN 500 MG TAB (TYLENOL) PO SCH (06:09)
[2019-12-05] MEDS ORDERED: IBUP-844 PO (07:14)
[2019-12-05] MEDS ORDERED: FERR325T18 PO (07:14)
--- NOTE | 2019-12-05 07:16 | Discharge Inst-Women's Service ---
Discharge Inst-Women's Serv Depart Medication/Instructions New, Converted or Re-Newed RX: Transmitted to Pharmacy ([facility]) Instructions continue with vitamin daily Problems Reviewed?: Yes Consults/Follow Up Additional Follow Up: Yes (Dr Le in 6 weeks at [facility]) Activity NO SMOKING: NO SMOKING Nothing Inside Vagina: No [place] (for 6 weeks.) Diet Discharge Diet: Regular Diet Return to The Hospital For: as below Symptoms to Report to : Bleeding Excessive, Fever Over 101 Degrees F, Pain/Pressure in Chest, Lightheadedness (persistent), Vaginal Discharge Foul For Any Problems or Questions: Contact Your Physician KEVIN LE MD Dec 05, 2019 07:16
--- NOTE | 2019-12-05 07:23 | Discharge Summary ---
Diagnosis/Chief Complaint Date of Admission Dec 02, 2019 at 22:45 Date of Discharge December 05, 2019 Admission Diagnosis Admission Diagnosis 1. Intrauterine at 40 weeks gestation Discharge Diagnosis 1. Intrauterine at 40 weeks gestation 2. Uterine inversion 3. Anemia due to acute blood loss 4. Dizziness secondary to number 3 Chief Complaint/HPI Chief Complaint/HPI 19-year-old 1 now term 1 who initially presented to labor and delivery during the evening of December 02, 2019 in labor. Patient was 40 weeks gestation at that time and dilated to 3 cm. She was admitted for labor and delivery. She received her care through [facility] and this was essentially unremarkable. Her EDC was November 30, 2019. Discharge Summary-OBS Procedures 1. Spontaneous vaginal delivery 2. Repair of midline episiotomy 3. Uterine inversion repair - Dr. Santana Consultations Dr. Max Pettit Discharge Physical Examination Allergies: Coded Allergies: No Known Drug Allergies (Unverified , 03/28/19) Vitals & I&Os Intake and Output 12/05/19 00:00 Intake Total 100 ml Balance 100 ml Vital Sign - Last 12Hours Date Time Temp Pulse Resp B/P (MAP) Pulse Ox O2 Delivery O2 Flow Rate FiO2 12/05/19 01:45 36.6 108 18 95/59 (71) 100 Room Air General Appearance: No Acute Distress Respiratory: Clear to Auscultation Cardiovascular: Regular Rate Abdominal: Soft (with uterus firm) Hospital Course She continued to contract and ultimately went on to deliver in the teamsite developer of December 03, 2019. Vaginal was uneventful and she delivered a term viable female with Apgars of 8 at 1 minute and 9 at 5 minutes. The placenta delivered shortly afterwards however upon inspection of the cervix it was noted that the uterus was inverted. At that point the bleeding was not significant and Dr. Santana was notified and promptly came in. Her uterus was evaluated and treated at bedside. Her bleeding again was not significant at that time. She also had a midline episiotomy that was repaired with 3-0 Vicryl. During the course she was noted to have a slow trickle of blood that was dark. Ultimately her level of hemoglobin was noted to be 8.4. She was noted to be slightly lightheaded at that time. Recheck hemoglobin in the morning of December 04, 2019 revealed 7.0. She was unable to stand without becoming dizzy and she was noted to be hypotensive. Patient was given unit of blood which markedly improved her symptoms. In the morning of December 04 she did not complain of dizziness at time of making rounds. Her hemoglobin was noted to be 7.8. She was also tolerating regular diet and did not complain of any chest pain or leg pain. She was felt ready for dismissal and she was eager for dismissal. She will take iron twice daily as well as her vitamin. Labs Laboratory Tests 12/05/19 05:10: White Blood Count 13.5H, Red Blood Count 2.65L, Hemoglobin 7.8L, Hematocrit 24L, Mean Corpuscular Volume 91, Mean Corpuscular Hemoglobin 29, Mean Corpuscular Hemoglobin Concent 32, Red Cell Distribution Width 14.0, Platelet Count 205, Mean Platelet Volume 10.3, Immature Granulocyte % (Auto) 1, Neutrophils (%) (Auto) 64, Lymphocytes (%) (Auto) 25, Monocytes (%) (Auto) 8, Eosinophils (%) (Auto) 2, Basophils (%) (Auto) 0, Neutrophils # (Auto) 8.7H, Lymphocytes # (Auto) 3.4, Monocytes # (Auto) 1.0, Eosinophils # (Auto) 0.3, Basophils # (Auto) 0.1, Immature Granulocyte # (Auto) 0.2H Discharge Instructions to patient/family Please see electronic discharge instructions given to patient. Discharge Medications Reviewed and agree with Discharge Medication list on patient's Discharge Instruction sheet Clinical Quality Measures DVT/VTE Risk/Contraindication: Risk Factor Score Per Nursin RFS Level Per Nursing on Admit: 1=Low/No VTE PPX KEVIN SYED MD Dec 05, 2019 07:23
[2019-12-05 09:15] VITALS: BP 104/56
--- NOTE | 2019-12-05 09:15 | NUR ---
A.M. ASSESSMENT COMPLETED. VSS. ANXIOUS TO GO HOME TODAY. CARING FOR IN ROOM. GOOD INTERACTION NOTED.
[2019-12-05] MEDS: FERROUS SULF 325 MG (IRON) TAB PO SCH (09:21)
[2019-12-05] MEDS: DOCUSATE SODIUM 100 MG (COLACE) CAP PO SCH (09:21)
[2019-12-05] MEDS: PRENATAL VITAMIN 1 EA TAB PO SCH (09:21)
--- NOTE | 2019-12-05 11:56 | NUR ---
1154 MMR GIVEN SUBQ IN THE LEFT UPPER ARM. SITE CLEAR. 1156 FLU VACCINE GIVEN IM IN THE RIGHT DELTOID. SITE CLEAR.
--- NOTE | 2019-12-05 12:25 | NUR ---
DISCHARGE INSTRUCTIONS REVIEWED WITH PT AND SPOUSE AND COPY GIVEN. STATES UNDERSTANDING OF ALL INSTRUCTIONS AND NEED TO F/U SCHEDULED AND NEEDED.
[2019-12-05 13:00] VITALS: BP 104/56
--- NOTE | 2019-12-05 13:00 | NUR ---
DISMISSED FROM [facility] VIA W/C WITH TO FAMILY CAR IN STABLE CONDITION ACC BY SPOUSE AND LYRIC AYALA RN.
--- NOTE | 2019-12-07 15:14 | History & Physical ---
History and Physical Date Seen by Provider: Dec 03, 2019 Time Seen by Provider: 02:50 This is an emergency / critical care note - late entry. See the operative report for procedure narrative. Vaginal delivery had been uncomplicated at the hands of Dr. Syed - however on delivery of the placenta he determined that the uterus had completely inverted. He was unable to replace or reinvert the uterus. I was called emergently at about 0240 for management of the complete uterine inversion. On my arrival at about 0250 - I was apprised of the emergency. The patient was in significant pain and severe distress. She was and spoke no Finnish. Mouse Breeder was on hand and related to the patient what needed to be done to correct the uterine inversion and my instructions as I proceeded with an initial exam. There was no possibility of performing an initial history and physical beyond confirming from Dr. Syed and the nursing staff that there were no allergies to further complicate the situation and that the patient had no problems with the labor or delivery until after the placenta delivered. I performed a gynecologic exam after donning gown and gloves. The uterus was completely inverted inside the vagina and was very firmly contracted. Bleeding was notable but not of a level to be of concern. The patient was receiving pitocin IV and I let that continue for the ecbolic effect which was minimizing the bleeding. The patient tolerated my initial exam but was intolerant of attempts to restore the uterus to its normal position. I requested that anesthesia be summoned emergently and I requested a 50 mcg dose of Fentanyl IV which relaxed the patient adequately to continue the effort to replace the uterus. As expected the uterus also relaxed somewhat as well allowing for the gradual return of the uterus. I that point I cancelled the request for anesthesia staff. Once restored to normal the uterus was maintained in a normal state by bimanual manipulation until it was evident that the uterus was jessica nicely in response to the pitocin and was demonstrating no overt effort to re-invert and that bleeding was normal. That required only a few additional minutes. The pitocin was continued. Repeat gynecologic exam was accomplished with the only abnormal finding of the unrepaired episiotomy. Bimanual exam demonstrated a well contracted uterus with fundal height below the umbilicus and no excessive retained clot or excessive bleeding. At this point the patient appeared to be relaxed and was in no obvious distress. The status of the patient was reviewed directly with Dr. Syed who resumed care of her for repair of the episiotomy. Total time spent in the LDR in evaluation and critical management of the patient was in excess of 25 minutes, with about 15 minutes involved with the direct effort to correct the inverted uterus. After which I reviewed the patients chart including all available histories as well as her admission history and physical and labwork which revealed nothing that would be expected to complicate her recovery. After confirming that Dr. Syed was comfortable with the status and condition of the patient, I signed off the case. inverted uterus after vaginal delivery Allergies and Home Medications Allergies Coded Allergies: No Known Drug Allergies (Unverified , 03/28/19) Home Medications Ferrous Sulfate 325 Mg Tablet, 325 MG PO BID WITH MEALS Prescribed by: KEVIN SYED on 12/05/1914 Ibuprofen 600 Mg Tablet, 600 MG PO Q6HR Prescribed by: KEVIN SYED on 12/05/1914 Clinical Quality Measures DVT/VTE Risk/Contraindication: Risk Factor Score Per Nursin RFS Level Per Nursing on Admit: 1=Low/No VTE PPX JULISSA ACRR MD Dec 07, 2019 15:14
== END 2019-12-05 13:00 | disposition home or self-care (01) | DRG 768 ==
LOC: WSo 20:54 → LDRP 20:55 → WSo 22:44 → LDRP 22:45
PROVIDERS: ADMIT Family Medicine; ATTEND Family Medicine
PROC: 10E0XZZ Delivery of Products of Conception, External Approach (ICD-10-PCS; principal; 2019-12-03)
PROC: 0US97ZZ Reposition Uterus, Via Natural or Artificial Opening (ICD-10-PCS; 2019-12-03)
PROC: 10D17Z9 Manual Extraction of Products of Conception, Retained, Via Natural or Artificial Opening (ICD-10-PCS; 2019-12-03)
PROC: 0W8NXZZ Division of Female Perineum, External Approach (ICD-10-PCS; 2019-12-03)
DX: O48.0 Post-term pregnancy (principal); Z37.0 Single live birth; O71.2 Postpartum inversion of uterus; O72.1 Other immediate postpartum hemorrhage; O72.2 Delayed and secondary postpartum hemorrhage; D62 Acute posthemorrhagic anemia; O77.0 Labor and delivery complicated by meconium in amniotic fluid; O90.81 Anemia of the puerperium; Z3A.40 40 weeks gestation of pregnancy; Z23 Encounter for immunization
CPT/HCPCS: 36415; 85007; 85025; 85027; 86850; 86900; 86901; 86920; 90686; 90707; 99212

== ENCOUNTER 2019-12-11 21:41 | Emergency (ER) | payer MEDICAID, OTHER ==
[~2019-12-11 21:41] MED LIST changes: +FERR325T18 PO; +IBUP-844 PO
== END 2019-12-11 21:47 | disposition left against medical advice (07) ==
LOC: EDUNIT# 21:41 → ER 21:42
DX: R10.9 Unspecified abdominal pain (principal); N89.8 Other specified noninflammatory disorders of vagina; R50.9 Fever, unspecified